=== PATIENT | male | born 1935 | race Two or more races ===

== ENCOUNTER 2019-10-26 13:56 | Emergency (ER) | payer OTHER ==
[~2019-10-26] VITALS: Ht 165.1 cm; Wt 65.8 kg
[2019-10-26 15:08] LABS: Basophils # (auto) 0.1 10 ^3/uL (0-0.2); Basophils % (auto) 0.9 % (0.0-2.0); Eosinophils # (auto) 0 10 ^3/uL (0-0.8); Eosinophils % (auto) 0.3 % (0.0-7.0); Hematocrit 32.9 % (41.0-53.0); Hemoglobin 11.1 g/dL (13.5-17.5); Lymphocytes # (auto) 0.6 10 ^3/uL (0.4-5.4); Lymphocytes % (auto) 9.1 % (10.0-50.0); Mean Corpuscular Hemoglobin 31.8 pg (28.0-32.0); Mean Corpuscular Hgb Conc. 33.7 g/dL (32.0-36.0); Mean Corpuscular Volume 94.3 fL (80.0-100.0); Monocytes # (auto) 0.5 10 ^3/uL (0-1.3); Monocytes % (auto) 7.3 % (0.0-12.0); Neutrophils # (auto) 5.7 10 ^3/uL (1.6-8.6); Neutrophils % (auto) 82.4 % (37.0-80.0); Platelet Count (auto) 251 10^3/uL (140-450); Red Blood Cells 3.49 10^6/uL (4.5-5.90); Red Cell Distribution Width 16.2 % (11.8-14.3); White Blood Cell 6.9 10^3/uL (4.4-10.8)
[2019-10-26 15:28] LABS: Albumin 2.9 g/dL (3.4-5.0); BUN/Creatinine Ratio 27.4; Calcium 8.8 mg/dL (8.5-10.1); Potassium 4.3 mmol/L (3.5-5.1)
[2019-10-26 15:30] LABS: Bilirubin, Total 0.3 mg/dL (0.2-1.0); Total Protein 7.6 g/dL (6.4-8.2)
[2019-10-26 21:15] VITALS: BP 167/89
== END 2019-10-26 21:20 | disposition home or self-care (01) ==
LOC: ER 13:56
DX: R60.0 Localized edema (principal); M79.662 Pain in left lower leg; M79.661 Pain in right lower leg; I10 Essential (primary) hypertension; I25.10 Atherosclerotic heart disease of native coronary artery without angina pectoris
CPT/HCPCS: 36415; 80053; 85025; 85379; 93970

== ENCOUNTER 2021-06-28 14:01 | Inpatient (IN) | payer OTHER ==
[~2021-06-28] VITALS: Ht 152.4 cm; Wt 57.6 kg
[2021-06-28] MEDS ORDERED: cefTRIAXone 1GM/50ML D5W 50 ML IV ONE (14:45)
[2021-06-28 15:51] LABS: Basophils # (auto) 0.1 10 ^3/uL (0-0.2); Basophils % (auto) 0.8 % (0.0-2.0); Eosinophils # (auto) 0.1 10 ^3/uL (0-0.8); Eosinophils % (auto) 1.2 % (0.0-7.0); Hemoglobin 12.2 g/dL (13.5-17.5); Lymphocytes # (auto) 0.6 10 ^3/uL (0.4-5.4); Lymphocytes % (auto) 7.2 % (10.0-50.0); Mean Corpuscular Hemoglobin 33.2 pg (28.0-32.0); Mean Corpuscular Hgb Conc. 34.8 g/dL (32.0-36.0); Mean Corpuscular Volume 95.5 fL (80.0-100.0); Monocytes # (auto) 0.4 10 ^3/uL (0-1.3); Neutrophils # (auto) 7.5 10 ^3/uL (1.6-8.6); Neutrophils % (auto) 85.8 % (37.0-80.0); Red Blood Cells 3.67 10^6/uL (4.5-5.90); Red Cell Distribution Width 19.9 % (11.8-14.3); White Blood Cell 8.7 10^3/uL (4.4-10.8)
[2021-06-28 16:08] LABS: Albumin 3.1 g/dL (3.4-5.0); Calcium 9.7 mg/dL (8.5-10.1); Potassium 4.7 mmol/L (3.5-5.1)
[2021-06-28 16:14] LABS: BUN/Creatinine Ratio 53.8; Bilirubin, Total 0.4 mg/dL (0.2-1.0); Total Protein 8.2 g/dL (6.4-8.2)
[2021-06-28 16:19] LABS: INR 1.01 (0.9-1.15)
[2021-06-28] MEDS ORDERED: FUROSEMIDE 20 MG/2 ML VIAL IV ONE (16:30)
[2021-06-28] MEDS ORDERED: ENOXAPARIN SOD 80 MG/0.8ML SYRINGE SC ONE (16:30)
[2021-06-28 17:01] LABS: Urine Bacteria NONE SEEN /hpf (None Seen); Urine Blood Negative /uL (Negative); Urine WBC 2 /hpf (0 - 3)
[2021-06-28] MEDS ORDERED: NITROGLYCERIN 0.4 MG SL TAB SL PRN (18:15)
[2021-06-28] MEDS ORDERED: MORPHINE SULFATE INJECTION 2 MG/ML SYRG IV PRN (18:15)
[2021-06-28] MEDS ORDERED: ONDANSETRON HCL 4 MG/2 ML VIAL IV PRN (20:00)
[2021-06-28] MEDS ORDERED: ACETAMINOPHEN 325 MG TAB PO PRN (20:00)
[2021-06-28] MEDS ORDERED: POLYETHYLENE GLYCOL 17 GM PWDR PO ONE (20:15)
[2021-06-28] MEDS: DOCUSATE SOD 100 MG CAP PO SCH (22:42)
[2021-06-28] MEDS: ATORVASTATIN 20 MG TAB PO SCH (22:42)
[2021-06-28] MEDS: SODIUM CHLORIDE 0.9% 1,000 ML IV SCH (23:21)
[2021-06-29 00:02] VITALS: BP 121/45
[2021-06-29 01:09] LABS: Albumin 2.5 g/dL (3.4-5.0); BUN/Creatinine Ratio 51.1; Calcium 8.9 mg/dL (8.5-10.1); Potassium 4.3 mmol/L (3.5-5.1)
[2021-06-29] MEDS ORDERED: ACET-1156 PO ×2 (01:10→10:49)
[2021-06-29 01:13] LABS: Bilirubin, Total 0.5 mg/dL (0.2-1.0); Total Protein 6.7 g/dL (6.4-8.2)
[2021-06-29 04:15] VITALS: BP 134/57
[2021-06-29] MEDS: ENOXAPARIN SOD 80 MG/0.8ML SYRINGE SC SCH ×2 (05:17→22:58)
[2021-06-29 06:41] LABS: Basophils # (auto) 0 10 ^3/uL (0-0.2); Basophils % (auto) 0.6 % (0.0-2.0); Eosinophils # (auto) 0.1 10 ^3/uL (0-0.8); Eosinophils % (auto) 1.5 % (0.0-7.0); Hematocrit 29.3 % (41.0-53.0); Lymphocytes # (auto) 0.8 10 ^3/uL (0.4-5.4); Lymphocytes % (auto) 12.1 % (10.0-50.0); Mean Corpuscular Hemoglobin 32.6 pg (28.0-32.0); Monocytes # (auto) 0.5 10 ^3/uL (0-1.3); Monocytes % (auto) 7.2 % (0.0-12.0); Neutrophils # (auto) 5.3 10 ^3/uL (1.6-8.6); Neutrophils % (auto) 78.6 % (37.0-80.0); Red Blood Cells 3.05 10^6/uL (4.5-5.90); Red Cell Distribution Width 19.8 % (11.8-14.3); White Blood Cell 6.7 10^3/uL (4.4-10.8)
[2021-06-29 09:00] VITALS: BP 144/67
[2021-06-29] MEDS ORDERED: ENOXAPARIN SOD 40 MG/0.4 ML SYRINGE SC SCH (10:00)
[2021-06-29] MEDS: POLYETHYLENE GLYCOL 17 GM PWDR PO SCH (10:01)
[2021-06-29] MEDS: ASPirin 81 mg TAB PO SCH (10:01)
[2021-06-29] MEDS: DOCUSATE SOD 100 MG CAP PO SCH ×2 (10:01→22:57)
[2021-06-29] MEDS: SODIUM CHLORIDE 0.9% 1,000 ML IV SCH ×2 (10:02→23:30)
[2021-06-29] MEDS ORDERED: POTA10TA51 PO (10:47)
[2021-06-29] MEDS ORDERED: FURO40TA4 PO (10:47)
[2021-06-29] MEDS ORDERED: TAMS0.4C36 PO (10:47)
[2021-06-29] MEDS ORDERED: RIVA20TA PO (10:47)
[2021-06-29] MEDS ORDERED: POLYETHYLENE GLYCOL 17 GM PWDR PO PRN (11:15)
[2021-06-29 13:00] VITALS: BP 122/62
[2021-06-29 17:00] VITALS: BP 136/63
[2021-06-29] MEDS: ACETAMINOPHEN 325 MG TAB PO PRN ×2 (18:58→23:41)
[2021-06-29 22:00] VITALS: BP 116/59
[2021-06-29] MEDS: ATORVASTATIN 20 MG TAB PO SCH (22:57)
[2021-06-30 05:00] VITALS: BP 111/66
[2021-06-30] MEDS: ACETAMINOPHEN 325 MG TAB PO PRN ×2 (05:31→13:09)
[2021-06-30 09:08] VITALS: BP 113/75
[2021-06-30] MEDS: DOCUSATE SOD 100 MG CAP PO SCH (09:11)
[2021-06-30] MEDS: ASPirin 81 mg TAB PO SCH (09:11)
[2021-06-30] MEDS: POLYETHYLENE GLYCOL 17 GM PWDR PO SCH (09:12)
[2021-06-30] MEDS: ENOXAPARIN SOD 80 MG/0.8ML SYRINGE SC SCH (09:12)
[2021-06-30] MEDS ORDERED: ASPI1CHW15 PO (12:25)
[2021-06-30] MEDS ORDERED: ATOR20TA50 PO (12:25)
[2021-06-30] MEDS ORDERED: DOCU100C10 PO (12:28)
[2021-06-30] MEDS ORDERED: LACT10SO3 PO (12:28)
[2021-06-30] MEDS ORDERED: POLY335015 PO (12:28)
[2021-06-30] MEDS ORDERED: LACTULOSE 20Gm/30ML SOLN PO PRN (12:30)
[2021-06-30] MEDS ORDERED: DOCUSATE SOD 100 MG CAP PO SCH (12:30)
[2021-06-30 13:00] VITALS: BP 144/62
[2021-06-30 15:01] VITALS: BP 136/77
[2021-06-30 17:00] VITALS: BP 121/59
[2021-06-30 17:29] VITALS: BP 144/62
== END 2021-06-30 19:30 | disposition hospice, home (50) | DRG 280 ==
LOC: EDUNIT# 14:01 → ER 14:01 → EDBD 14:01 → TELE 18:14 → TELE-EAST 21:00
PROVIDERS: ADMIT Internal Medicine; ATTEND Hospitalist
DX: I21.4 Non-ST elevation (NSTEMI) myocardial infarction (principal); I50.43 Acute on chronic combined systolic (congestive) and diastolic (congestive) heart failure; G93.41 Metabolic encephalopathy; D68.9 Coagulation defect, unspecified; E44.1 Mild protein-calorie malnutrition; R53.1 Weakness; I25.10 Atherosclerotic heart disease of native coronary artery without angina pectoris; I11.0 Hypertensive heart disease with heart failure; I67.2 Cerebral atherosclerosis; M16.11 Unilateral primary osteoarthritis, right hip; Z20.822 Contact with and (suspected) exposure to COVID-19; N40.1 Benign prostatic hyperplasia with lower urinary tract symptoms; I50.9 Heart failure, unspecified; R33.8 Other retention of urine; R53.81 Other malaise; Z68.24 Body mass index [BMI] 24.0-24.9, adult; Z91.14 Patient's other noncompliance with medication regimen; Z90.49 Acquired absence of other specified parts of digestive tract
CPT/HCPCS: 36415; 70450; 71045; 74176; 80053; 81001; 83605; 83880; 84484; 85025; 85610; 85730; 87040; 87086; 93005; 93306; 96365; 96366; 96372; 96375; 97110; 97530; G0378; J0696